=== PATIENT | male | born 1955 | race Caucasian/White ===

== ENCOUNTER 2019-05-17 15:46 | Inpatient (IN) | payer MEDICAID ==
[2019-05-17] MEDS ORDERED: Sodium Chloride 0.9% 1,000 ML IV SCH (16:30)
--- NOTE | 2019-05-17 16:44 | EDM.PDOC ---
ED HPI GENERAL MEDICAL PROBLEM - General Chief Complaint: Respiratory Problem Stated Complaint: DIZZY, SOB, HEADACHE Time Seen by Provider: 05/17/19 16:25 Source of Information: Reports: Patient, Family History Limitations: Reports: No Limitations - History of Present Illness INITIAL COMMENTS - FREE TEXT/NARRATIVE: 64-year-old otherwise healthy male is seen with persistent weakness, dizziness and lightheaded with activity, and shortness of breath. He was seen a few days ago in the clinic and evaluated but felt to be stable, he was rechecked today and there was a concern for a pulmonary emboli because of low O2 saturations at rest and was sent to the emergency room for a PE study. On arrival his oxygen was 90% on room air, but his pulse was 67 and he was not short of breath. No fevers or chills. His main complaint was just generalized malaise, weakness, worsening intolerance of activity. Onset: Gradual Duration: Week(s): Location: Reports: Generalized Associated Symptoms: Reports: Loss of Appetite, Malaise, Weakness. Denies: Confusion, Chest Pain, Cough Bilateral Shoulder Pain Score (Numeric/FACES): 3 - Related Data Allergies Allergy/AdvReac Type Severity Reaction Status Date / Time meperidine [From Demerol] Allergy Nausea and Verified 05/17/19 15:58 Vomiting Past Medical History HEENT History: Reports: None Gastrointestinal History: Reports: None Musculoskeletal History: Reports: Back Pain, Chronic Neurological History: Reports: None - Past Surgical History HEENT Surgical History: Reports: LASIK GI Surgical History: Reports: Hernia, Inguinal Neurological Surgical History: Reports: Laminectomy Musculoskeletal Surgical History: Reports: Shoulder Surgery, Other (See Below) Other Musculoskeletal Surgeries/Procedures:: right foot surgery , left rotator on april 01 [facility] in [place] Social & Family History - Family History Family Medical History: Noncontributory - Tobacco Use Smoking Status *Q: Never Smoker Second Hand Smoke Exposure: No - Caffeine Use Caffeine Use: Reports: None - Recreational Drug Use Recreational Drug Use: No ED ROS GENERAL - Review of Systems Review Of Systems: See Below Constitutional: Reports: Malaise, Decreased Appetite. Denies: Fever, Chills HEENT: Reports: No Symptoms Respiratory: Reports: Shortness of Breath. Denies: Cough Cardiovascular: Reports: Dyspnea on Exertion, Lightheadedness. Denies: Chest Pain Endocrine: Reports: Fatigue GI/Abdominal: Reports: Decreased Appetite. Denies: Abdominal Pain, Vomiting : Reports: No Symptoms Musculoskeletal: Reports: Other (Left shoulder pain since his shoulder repair, also a recent injection in his right foot. Patient is also been told he has some abnormalities of his vertebral bodies in his neck) Skin: Reports: No Symptoms Neurological: Reports: Paresthesia (Persistent paresthesias in his upper extremities, particularly the left hand) Psychiatric: Reports: No Symptoms ED EXAM, GENERAL - Physical Exam Exam: See Below Exam Limited By: No Limitations General Appearance: Alert, No Apparent Distress Eye Exam: Bilateral Eye: EOMI, Normal Inspection Head: Atraumatic Neck: Supple, Non-Tender Respiratory/Chest: Lungs Clear Cardiovascular: Regular Rate, Rhythm. No: Extra Beats GI/Abdominal: Soft, Non-Tender Extremities: Normal Inspection, Other (Some tenderness around the left shoulder from her recent surgery). No: Pedal Edema Neurological: Alert, Oriented, Other (Reflexes are mildly hyporeflexic diffusely ) Psychiatric: Normal Affect, Normal Mood Skin Exam: Warm, Dry Course - Vital Signs Last Recorded V/S: Last Vital Signs Temp 97 F 05/18/19 14:59 Pulse 71 05/18/19 14:59 Resp 16 05/18/19 14:59 BP 123/75 05/18/19 14:59 Pulse Ox 93 L 05/18/19 14:59 - Orders/Labs/Meds Labs: Laboratory Tests 05/17/19 05/17/19 05/17/19 Range/Units 16:27 16:28 16:28 D-Dimer, Quantitative 144 (0.0-400.0) ng/mL Sodium 136 L (140-148) mmol/L Potassium 4.4 (3.6-5.2) mmol/L Chloride 101 (100-108) mmol/L Carbon Dioxide 28 (21-32) mmol/L Anion Gap 11.4 (5.0-14.0) mmol/L BUN 46 H (7-18) mg/dL Creatinine 1.8 H (0.8-1.3) mg/dL Est Cr Clr Drug Dosing 48.84 mL/min Estimated GFR (MDRD) 38 L (>60) Glucose 109 H (74-106) mg/dL Calcium 13.1 H* (8.5-10.1) mg/dL Total Bilirubin 0.5 (0.2-1.0) mg/dL Direct Bilirubin 0.11 (0.0-0.2) mg/dL Indirect Bilirubin 0.39 AST 19 (15-37) U/L ALT 32 (12-78) U/L Alkaline Phosphatase 68 (46-116) U/L Total Protein 7.3 (6.4-8.2) g/dL Albumin 3.2 L (3.4-5.0) g/dL Globulin 4.1 H (2.3-3.5) g/dL Albumin/Globulin Ratio 0.8 L (1.2-2.2) Meds: Medications Discontinued Medications Generic Name Dose Route Start Last Admin Trade Name Freq PRN Reason Stop Dose Admin Acetaminophen 650 mg 05/17/19 19:31 Tylenol PO Q4H PRN Pain (Mild 1-3)/fever Enoxaparin Sodium 80 mg 05/17/19 20:00 05/18/19 09:01 Lovenox SUBCUT 80 mg Q12H WILLY Administration Sodium Chloride 1,000 mls @ 1,000 mls/hr 05/17/19 16:30 05/17/19 16:32 Normal Saline IV 1,000 mls/hr ASDIRECTED WILLY Administration Sodium Chloride 1,000 mls @ 250 mls/hr 05/17/19 19:31 05/18/19 00:19 Normal Saline IV 05/18/19 03:32 250 mls/hr ASDIRECTED WILLY Administration Sodium Chloride 1,000 mls @ 125 mls/hr 05/18/19 03:00 05/18/19 13:06 Normal Saline IV 125 mls/hr ASDIRECTED WILLY Administration Sodium Chloride 90 mls @ 0 mls/hr 05/18/19 08:00 05/18/19 09:23 Normal Saline IV 05/18/19 12:00 4 mls/hr ASDIRECTED WILLY Administration KVO Iopamidol 80 ml 05/18/19 08:00 05/18/19 09:23 Isovue-370 (76%) IV 05/18/19 12:00 80 ml . DIRECTED WILLY Administration Melatonin 9 mg 05/17/19 19:31 Melatonin PO BEDTIME PRN Insomnia Ondansetron HCl 4 mg 05/17/19 19:31 Zofran IV Q4H PRN Nausea/Vomiting Polyethylene Glycol 17 gm 05/17/19 19:31 Miralax PO DAILY PRN Constipation Sodium Chloride 10 ml 05/17/19 19:31 Saline Flush FLUSH ASDIRECTED PRN Keep Vein Open Sodium Chloride 10 ml 05/18/19 07:51 05/18/19 09:24 Saline Flush FLUSH 05/18/19 07:52 10 ml ONETIME ONE Administration - Re-Assessments/Exams Free Text/Narrative Re-Assessment/Exam: 05/17/19 17:13 Initially a BMP was drawn and 1 L of normal saline was given as a bolus to prepare for a PE study. D-dimer returned normal, but calcium was 13.1 and creatinine 1.8, GFR 36. This is a patient that tries hard to stay hydrated and drinks a lot of water. We were unable to do the PE study due to the limited renal function, I discussed his case with Dr. Larson of the hospitalist service and he kindly agreed to visit with the patient about possible admission and further evaluation. Departure - Departure Time of Disposition: 19:50 Disposition: Admitted As Inpatient 67 Clinical Impression: Hypoxemia, Hypercalcemia, Weakness - Discharge Information
--- NOTE | 2019-05-17 18:56 | PCM.HP ---
H&P History of Present Illness - General Date of Service: 05/17/19 Admit Problem/Dx: Admission Diagnosis/Problem Admission Diagnosis/Problem Hypercalcemia Source of Information: Patient, Family, Provider, RN Notes Reviewed History Limitations: Reports: No Limitations - History of Present Illness Initial Comments - Free Text/Narative: Mr. Godinez is a 64-year-old gentleman who was admitted through the emergency department with progressive symptoms of weakness, lightheadedness, headache, and anorexia. On evaluation in the emergency department was found to have hypercalcemia with a calcium level of 13.1 and acute kidney injury with a creatinine of 1.8. Over the last 3-4 months he is noted progressive symptoms of weakness and shortness of breath with activity. He has experienced a 15 pound weight loss over the last 2 months. He has become progressively more short of breath and on evaluation today was noted to have mild hypoxia with oxygen saturations on room air in the upper 80s. Approximately 6 weeks ago he underwent a left rotator cuff repair in symptoms have progressed significantly since then. He otherwise reports that he is been fairly healthy other than chronic back and neck pain. He denies any previous history of significant hypertension or underlying renal disease. - Related Data Allergies/Adverse Reactions: Allergies Allergy/AdvReac Type Severity Reaction Status Date / Time meperidine [From Demerol] Allergy Nausea and Verified 05/17/19 15:58 Vomiting Home Medications: Home Meds Ibuprofen [Advil] 200 mg PO Q4H PRN 06/12/18 [History] Past Medical History HEENT History: Reports: None Gastrointestinal History: Reports: None Musculoskeletal History: Reports: Back Pain, Chronic Neurological History: Reports: None - Past Surgical History HEENT Surgical History: Reports: LASIK GI Surgical History: Reports: Hernia, Inguinal Neurological Surgical History: Reports: Laminectomy Musculoskeletal Surgical History: Reports: Shoulder Surgery, Other (See Below) Other Musculoskeletal Surgeries/Procedures:: right foot surgery , left rotator on april 01 [facility] in [place] Social & Family History - Family History Family Medical History: Noncontributory - Tobacco Use Smoking Status *Q: Never Smoker Second Hand Smoke Exposure: No - Caffeine Use Caffeine Use: Reports: None - Recreational Drug Use Recreational Drug Use: No H&P Review of Systems - Review of Systems: Review Of Systems: See Below General: Reports: Malaise, Weakness, Fatigue, Decreased Appetite. Denies: Fever , Chills HEENT: Reports: Headaches. Denies: Ear Pain, Eye Pain, Hearing Changes, Sinus Congestion, Sore Throat Pulmonary: Reports: Shortness of Breath. Denies: Wheezing, Pleuritic Chest Pain , Cough, Sputum, Hemoptysis Cardiovascular: Reports: Dyspnea on Exertion, Lightheadedness. Denies: Chest Pain, Palpitations, Orthopnea, PND, Edema, Syncope Gastrointestinal: Reports: Decreased Appetite, Nausea. Denies: Abdominal Pain, Black Stool, Bloody Stool, Constipation, Diarrhea, Difficulty Swallowing, Distension, Vomiting Genitourinary: Reports: No Symptoms Musculoskeletal: Reports: Other (Left shoulder pain following surgery 6 weeks ago) Skin: Reports: No Symptoms Psychiatric: Reports: No Symptoms Neurological: Reports: No Symptoms Hematologic/Lymphatic: Reports: No Symptoms Immunologic: Reports: No Symptoms Exam - Exam Exam: See Below - Vital Signs Vital Signs: Last Vital Signs Temp 96.1 F 05/17/19 16:03 Pulse 66 05/17/19 17:44 Resp 16 05/17/19 17:44 BP 127/86 05/17/19 17:44 Pulse Ox 92 L 05/17/19 17:44 Weight: 181 lb 14.102 oz - Exam Quality Assessment: Supplemental Oxygen, DVT Prophylaxis General: Alert, Oriented, Cooperative, Mild Distress HEENT: Conjunctiva Clear, Hearing Intact, Normal Nasal Septum, Posterior Pharynx Clear, Pupils Equal. No: Mucosa Moist & [employer] Neck: Supple, Trachea Midline, +2 Carotid Pulse wo Bruit Lungs: Clear to Auscultation, Normal Respiratory Effort Cardiovascular: Regular Rate, Regular Rhythm, Normal S1, Normal S2. No: Systolic Murmur, Diastolic Murmur GI/Abdominal Exam: Soft, Non-Tender, No Organomegaly, No Distention Back Exam: Normal Inspection, Full Range of Motion Extremities: Non-Tender, No Pedal Edema Skin: Warm, Dry, Intact Neurological: Cranial Nerves Intact, Strength Equal Bilateral, Normal Speech, Normal Tone, Sensation Intact. No: Focal Deficit Neuro Extensive - Mental Status: Alert, Oriented x3, Normal Mood/Affect, Normal Cognition, Memory Intact - Patient Data Lab Results Last 24 hrs: Laboratory Results - last 24 hr 05/17/19 05/17/19 05/17/19 Range/Units 16:27 16:28 16:28 D-Dimer, Quantitative 144 (0.0-400.0) ng/mL Sodium 136 L (140-148) mmol/L Potassium 4.4 (3.6-5.2) mmol/L Chloride 101 (100-108) mmol/L Carbon Dioxide 28 (21-32) mmol/L Anion Gap 11.4 (5.0-14.0) mmol/L BUN 46 H (7-18) mg/dL Creatinine 1.8 H (0.8-1.3) mg/dL Est Cr Clr Drug Dosing 48.84 mL/min Estimated GFR (MDRD) 38 L (>60) Glucose 109 H (74-106) mg/dL Calcium 13.1 H* (8.5-10.1) mg/dL Total Bilirubin 0.5 (0.2-1.0) mg/dL Direct Bilirubin 0.11 (0.0-0.2) mg/dL Indirect Bilirubin 0.39 AST 19 (15-37) U/L ALT 32 (12-78) U/L Alkaline Phosphatase 68 (46-116) U/L Total Protein 7.3 (6.4-8.2) g/dL Albumin 3.2 L (3.4-5.0) g/dL Globulin 4.1 H (2.3-3.5) g/dL Albumin/Globulin Ratio 0.8 L (1.2-2.2) Result Diagrams: 05/17/19 16:28 *Q Meaningful Use (ADM) - VTE Risk Assess *Q Each Risk Factor Represents 1 Point: None Total Score 1 Point Risk Factors: 0 Each Risk Factor Represents 2 Points: Age 60 - 74 Years Total Score 2 Point Risk Factors: 2 Each Risk Factor Represents 3 Points: None Total Score 3 Point Risk Factors: 0 Each Risk Factor Represents 5 Points: None Total Score 5 Point Risk Factors: 0 Venous Thromboembolism Risk Factor Score *Q: 2 Problem List Initiated/Reviewed/Updated: Yes Orders Last 24hrs: Active Orders 24 hr Category Date Time Status Patient Status Manage Transfer [TRANSFER] Routine ADT 05/17/19 18:42 Active Sodium Chloride 0.9% [Normal Saline] 1,000 ml Med 05/17/19 16:30 Active IV ASDIRECTED Resuscitation Status Routine Resus Stat 05/17/19 18:43 Ordered Medication Orders Sodium Chloride (Normal Saline) 1,000 mls @ 1,000 mls/hr IV ASDIRECTED WILLY Last Admin: 05/17/19 16:32 Dose: 1,000 mls/hr Assessment/Plan Comment:: ASSESSMENT AND PLAN HYPOXIA-no specific etiology identified thus far on evaluation, chest x-ray obtained at the clinic was reported as clear. History of recent surgery as well as possible underlying malignancy causing hypercalcemia, places him at higher risk for deep vein thrombosis and pulmonary emboli. Unable to proceed with CT scan of the chest with contrast because of acute kidney injury and elevated creatinine. No prior history of significant pulmonary or cardiac disease. -Lovenox 1 mg/kg subcutaneous every [address] scan can be obtained -Reassess creatinine level in a.m. following hydration, if improvement plan to proceed with CT angiogram of the chest. -Consider further evaluation with echocardiogram, stress test, pulmonary function studies if CT scan is unremarkable HYPERCALCEMIA-no prior history, likely primary hyperparathyroidism versus underlying malignancy. This is associated with progressive symptoms of weakness and lightheadedness, as well as a 15 pound weight loss over the past 6 weeks. -Hydration overnight with normal saline -Recheck calcium level in a.m. following hydration -Obtain parathyroid hormone level -Consider further evaluation for underlying malignancy ACUTE KIDNEY INJURY-no prior history of significant kidney disease, likely secondary to current hypercalcemia and dehydration -Obtain prior labs for review -IV hydration as above -Recheck renal function in a.m. RECENT HEADACHES-this is a new problem for him, he has not previously experienced regular headaches. -MRI with contrast when renal function improves STATUS POST RECENT LEFT ROTATOR CUFF REPAIR-stable and progressing with rehabilitation as would be expected MAINTENANCE ISSUES -DVT prophylaxis; current therapeutic dose of Lovenox should provide adequate DVT prophylaxis -GI prophylaxis; not indicated -Scherer catheter; not indicated -Nutrition; regular diet -Nicotine dependence; not required CODE STATUS-FULL CODE ADMISSION STATUS-patient will be admitted to inpatient status, expect at least a 2 night hospital stay for evaluation and management of problems as outlined above. At the time of this admission I do not reasonably expected evaluation and management of this problem will require more than a 96 hour hospital stay. DISPOSITION-anticipate discharge to home after the hospital stay. PRIMARY CARE PROVIDER-Bethany Balderrama
[2019-05-17] MEDS ORDERED: Sodium Chloride 0.9% 10 ML Syringe FLUSH PRN (19:31)
[2019-05-17] MEDS ORDERED: Acetaminophen 325 MG Tab PO PRN (19:31)
[2019-05-17] MEDS ORDERED: Melatonin 3 MG Tab PO PRN (19:31)
[2019-05-17] MEDS ORDERED: Polyethylene Glycol 3350 Powder 17 GM Packet PO PRN (19:31)
[2019-05-17] MEDS ORDERED: Ondansetron 4 MG/2 ML SDV IV PRN (19:31)
[2019-05-17] MEDS: Sodium Chloride 0.9% 1,000 ML IV SCH (20:14)
[2019-05-17] MEDS: Enoxaparin 80 MG/0.8 ML Syringe SUBCUT SCH (20:21)
[2019-05-18] MEDS: Sodium Chloride 0.9% 1,000 ML IV SCH ×3 (00:19→13:06)
[2019-05-18] MEDS ORDERED: Iopamidol 755 Mg/ML 100 ML Bottle IV SCH (08:00)
[2019-05-18] MEDS ORDERED: Sodium Chloride 0.9% 90 ML IV SCH (08:00)
[2019-05-18] MEDS: Enoxaparin 80 MG/0.8 ML Syringe SUBCUT SCH (09:01)
[2019-05-18] MEDS: Sodium Chloride 0.9% 10 ML Syringe FLUSH ONE ×2 (09:02→09:24)
--- NOTE | 2019-05-18 09:02 | CRLCT ---
INDICATION: 64 year-old male. Unexplained hypoxia. TECHNIQUE: Contrast-enhanced chest CT performed using the pulmonary embolism protocol. 80 cc nonionic Isovue-370 administered. COMPARISON: None. No correlative studies either. FINDINGS: No acute pulmonary emboli identified. No pleural or pericardial effusions. No thoracic aortic aneurysm or dissection. Normal adrenal glands. Tiny calcified splenic granulomas. Calcified left hilar/mediastinal lymph nodes likely related to a granulomatous process. Multiple tiny airspace nodules. Peripheral subpleural ground-glass opacities. More focal fibrosis or atelectasis anteromedial right middle lobe. Diffusely increased attenuation of pulmonary parenchyma/ground-glass attenuation. The appearance likely reflects some sort of chronic inflammatory process or perhaps a superimposed infection. Please correlate clinically. This may explain the patient`s reported hypoxia. The included skeleton is negative. IMPRESSION: 1. Multiple tiny airspace nodules and ground-glass opacities/increase pulmonary parenchyma likely related to an inflammatory process potentially chronic or acute and chronic. Infection is considered less likely. 2. No pulmonary emboli. No thoracic aortic aneurysm or dissection. 3. Granulomatous changes left hemithorax and spleen. Please note that all CT scans at this facility use dose modulation, iterative reconstruction, and/or weight-based dosing when appropriate to reduce radiation dose to as low as reasonably achievable. Dictated by Elfego Sullivan MD @ May 18 2019 9:01AM Signed by Dr. Elfego Sullivan @ May 18 2019 9:01AM
--- NOTE | 2019-05-18 12:03 | CRLMR ---
INDICATION: Headaches. Hypercalcemia. Weight loss. TECHNIQUE: Multiplanar multisequence noncontrast MR images were obtained through the brain. COMPARISON: None. FINDINGS: Artifact degrades the axial FLAIR sequence. The ventricles and sulci are within normal limits for patient age. No mass effect or midline shift. No parenchymal signal abnormalities within limitations of artifact. No diffusion restriction to suggest acute infarction. No intracranial hemorrhage or pathologic extra-axial fluid collection. The major arterial flow voids of the skullbase are preserved. The globes are symmetric in size. Mild mucosal thickening in the ethmoid air cells. The mastoid air cells are clear. IMPRESSION: No acute infarction, mass effect, or intracranial hemorrhage. Dictated by Perez Castellon MD @ May 18 2019 11:55AM Signed by Dr. Perez Castellon @ May 18 2019 12:02PM
--- NOTE | 2019-05-18 15:17 | PCM.DCSUM1 ---
Discharge Summary - Hospital Course Brief History: Mr. Godinez is a 64-year-old gentleman who was admitted through the emergency department with hypoxia, hypercalcemia, and acute kidney injury. - Discharge Data Discharge Date: 05/18/19 Discharge Disposition: Home, Self-Care 01 Condition: Fair - Discharge Diagnosis/Problem(s) (1) Anorexia SNOMED Code(s): 75499641 ICD Code: R63.0 - ANOREXIA Status: Acute Current Visit: Yes (2) JONH (acute kidney injury) SNOMED Code(s): 17864809, 26462968 ICD Code: N17.9 - ACUTE KIDNEY FAILURE, UNSPECIFIED Status: Acute Current Visit: Yes (3) Hypoxemia SNOMED Code(s): 058736645 ICD Code: R09.02 - HYPOXEMIA Status: Acute Current Visit: Yes (4) Hypercalcemia SNOMED Code(s): 88192054 ICD Code: E83.52 - HYPERCALCEMIA Status: Acute Current Visit: Yes (5) Weakness SNOMED Code(s): 35471234 ICD Code: R53.1 - WEAKNESS Status: Acute Current Visit: Yes - Patient Summary/Data Hospital Course: Mr. Godinez is a 64-year-old gentleman who was admitted through the emergency department with progressive symptoms of weakness, lightheadedness, headache, and anorexia. On evaluation in the emergency department was found to have hypercalcemia with a calcium level of 13.1 and acute kidney injury with a creatinine of 1.6. Over the last 3-4 months he is noted progressive symptoms of weakness and shortness of breath with activity. He has experienced a 15 pound weight loss over the last 2 months. He has become progressively more short of breath and on evaluation today was noted to have mild hypoxia with oxygen saturations on room air in the mid 80s. Approximately 6 weeks ago he underwent a left rotator cuff repair, since then symptoms have progressed. He otherwise reports that he is been fairly healthy other than chronic back and neck pain. He denies any previous history of significant hypertension or underlying renal disease. On admission he was given IV fluids for hydration and supplemental oxygen as needed. He remained hemodynamically stable and afebrile throughout his hospital stay. By the following morning, after hydration, creatinine had improved to 1.4 with a GFR greater than 40 and his calcium level had improved to 11.1. CT scan of the chest with IV contrast showed no evidence of pulmonary emboli, but did describe nodular groundglass infiltrates in both lungs, granulomatous changes in the left lung and spleen. MRI of the head without contrast was obtained because of his symptoms of headache over the past few weeks. No significant abnormalities were seen on the MRI. He was found to have persistent hypoxia with oxygen saturations in the mid 80s after activity on room air. Because of his ongoing symptoms and findings noted on CT scan he will be transferred to [facility] in [facility] for further subspecialty evaluation and management. He has been accepted in transfer by Dr. Low. - Patient Instructions Diet: Usual Diet as Tolerated Activity: As Tolerated Other/Special Instructions: Patient will be transfered to [facility] via [facility] ambulance - Discharge Plan *PRESCRIPTION DRUG MONITORING PROGRAM REVIEWED*: Not Applicable *COPY OF PRESCRIPTION DRUG MONITORING REPORT IN PATIENT WYATT: Not Applicable Oxygen Therapy Mode: Nasal Cannula Referrals: Bethany Balderrama PA [Primary Care Provider] - - Discharge Summary/Plan Comment DC Time >30 min.: No - Patient Data Vitals - Most Recent: Last Vital Signs Temp 97 F 05/18/19 14:59 Pulse 71 05/18/19 14:59 Resp 16 05/18/19 14:59 BP 123/75 05/18/19 14:59 Pulse Ox 93 L 05/18/19 14:59 Weight - Most Recent: 187 lb I&O - Last 24 hours: Intake & Output 05/18/19 05/18/19 05/18/19 06:59 14:59 22:59 Intake Total 300 660 Output Total 400 1675 200 Balance -100 -1015 -200 Lab Results - Last 24 hrs: Laboratory Results - last 24 hr 05/17/19 05/17/19 05/17/19 Range/Units 16:27 16:28 16:28 WBC (4.5-11.0) K/uL RBC (4.30-5.90) M/uL Hgb (12.0-15.0) g/dL Hct (40.0-54.0) % MCV (80-98) fL MCH (27-31) pg MCHC (32-36) % Plt Count (150-400) K/uL Neut % (Auto) (36-66) % Lymph % (Auto) (24-44) % Ford % (Auto) (2-6) % Eos % (Auto) (2-4) % Baso % (Auto) (0-1) % D-Dimer, Quantitative 144 (0.0-400.0) ng/mL Sodium 136 L (140-148) mmol/L Potassium 4.4 (3.6-5.2) mmol/L Chloride 101 (100-108) mmol/L Carbon Dioxide 28 (21-32) mmol/L Anion Gap 11.4 (5.0-14.0) mmol/L BUN 46 H (7-18) mg/dL Creatinine 1.8 H (0.8-1.3) mg/dL Est Cr Clr Drug Dosing 48.84 mL/min Estimated GFR (MDRD) 38 L (>60) Glucose 109 H (74-106) mg/dL Calcium 13.1 H* (8.5-10.1) mg/dL POC WB Ioniz Calcium (1.12-1.32) mmol/L Total Bilirubin 0.5 (0.2-1.0) mg/dL Direct Bilirubin 0.11 (0.0-0.2) mg/dL Indirect Bilirubin 0.39 AST 19 (15-37) U/L ALT 32 (12-78) U/L Alkaline Phosphatase 68 (46-116) U/L Total Protein 7.3 (6.4-8.2) g/dL Albumin 3.2 L (3.4-5.0) g/dL Globulin 4.1 H (2.3-3.5) g/dL Albumin/Globulin Ratio 0.8 L (1.2-2.2) TSH, Ultra Sensitive (0.358-3.740) uIU/mL Urine Color Urine Appearance Urine pH (4.5-8.0) Ur Specific [place] (1.008-1.030) Urine Protein (NEGATIVE) mg/dL Urine Glucose (UA) (NEGATIVE) mg/dL Urine Ketones (NEGATIVE) mg/dL Urine Occult Blood (NEGATIVE) Urine Nitrite (NEGAITVE) Urine Bilirubin (NEGATIVE) Urine Urobilinogen (NORMAL) mg/dL Ur Leukocyte Esterase (NEGATIVE) Urine RBC (0-5) Urine WBC (0-5) Ur Epithelial Cells Amorphous Sediment Urine Bacteria Urine Mucus 06/25/19 06/25/19 06/25/19 Range/Units 04:42 04:42 04:42 WBC 7.9 (4.5-11.0) K/uL RBC 4.29 L (4.30-5.90) M/uL Hgb 12.6 (12.0-15.0) g/dL Hct 37.1 L (40.0-54.0) % MCV 87 (80-98) fL MCH 29 (27-31) pg MCHC 34 (32-36) % Plt Count 200 (150-400) K/uL Neut % (Auto) 66 (36-66) % Lymph % (Auto) 21 L (24-44) % Ford % (Auto) 11 H (2-6) % Eos % (Auto) 2 (2-4) % Baso % (Auto) 0 (0-1) % D-Dimer, Quantitative (0.0-400.0) ng/mL Sodium (140-148) mmol/L Potassium (3.6-5.2) mmol/L Chloride (100-108) mmol/L Carbon Dioxide (21-32) mmol/L Anion Gap (5.0-14.0) mmol/L BUN (7-18) mg/dL Creatinine (0.8-1.3) mg/dL Est Cr Clr Drug Dosing mL/min Estimated GFR (MDRD) (>60) Glucose (74-106) mg/dL Calcium (8.5-10.1) mg/dL POC WB Ioniz Calcium 1.59 H* (1.12-1.32) mmol/L Total Bilirubin (0.2-1.0) mg/dL Direct Bilirubin (0.0-0.2) mg/dL Indirect Bilirubin AST (15-37) U/L ALT (12-78) U/L Alkaline Phosphatase (46-116) U/L Total Protein (6.4-8.2) g/dL Albumin (3.4-5.0) g/dL Globulin (2.3-3.5) g/dL Albumin/Globulin Ratio (1.2-2.2) TSH, Ultra Sensitive 1.031 (0.358-3.740) uIU/mL Urine Color Urine Appearance Urine pH (4.5-8.0) Ur Specific [place] (1.008-1.030) Urine Protein (NEGATIVE) mg/dL Urine Glucose (UA) (NEGATIVE) mg/dL Urine Ketones (NEGATIVE) mg/dL Urine Occult Blood (NEGATIVE) Urine Nitrite (NEGAITVE) Urine Bilirubin (NEGATIVE) Urine Urobilinogen (NORMAL) mg/dL Ur Leukocyte Esterase (NEGATIVE) Urine RBC (0-5) Urine WBC (0-5) Ur Epithelial Cells Amorphous Sediment Urine Bacteria Urine Mucus 05/18/19 05/18/19 Range/Units 04:42 10:13 WBC (4.5-11.0) K/uL RBC (4.30-5.90) M/uL Hgb (12.0-15.0) g/dL Hct (40.0-54.0) % MCV (80-98) fL MCH (27-31) pg MCHC (32-36) % Plt Count (150-400) K/uL Neut % (Auto) (36-66) % Lymph % (Auto) (24-44) % Ford % (Auto) (2-6) % Eos % (Auto) (2-4) % Baso % (Auto) (0-1) % D-Dimer, Quantitative (0.0-400.0) ng/mL Sodium 140 (140-148) mmol/L Potassium 4.3 (3.6-5.2) mmol/L Chloride 106 (100-108) mmol/L Carbon Dioxide 25 (21-32) mmol/L Anion Gap 8.8 (5.0-14.0) mmol/L BUN 37 H (7-18) mg/dL Creatinine 1.6 H (0.8-1.3) mg/dL Est Cr Clr Drug Dosing 54.94 mL/min Estimated GFR (MDRD) 44 L (>60) Glucose 102 (74-106) mg/dL Calcium 11.2 H (8.5-10.1) mg/dL POC WB Ioniz Calcium (1.12-1.32) mmol/L Total Bilirubin (0.2-1.0) mg/dL Direct Bilirubin (0.0-0.2) mg/dL Indirect Bilirubin AST (15-37) U/L ALT (12-78) U/L Alkaline Phosphatase (46-116) U/L Total Protein (6.4-8.2) g/dL Albumin (3.4-5.0) g/dL Globulin (2.3-3.5) g/dL Albumin/Globulin Ratio (1.2-2.2) TSH, Ultra Sensitive (0.358-3.740) uIU/mL Urine Color Yellow Urine Appearance Clear Urine pH 6.0 (4.5-8.0) Ur Specific [place] 1.015 (1.008-1.030) Urine Protein Negative (NEGATIVE) mg/dL Urine Glucose (UA) Normal (NEGATIVE) mg/dL Urine Ketones Negative (NEGATIVE) mg/dL Urine Occult Blood Negative (NEGATIVE) Urine Nitrite Negative (NEGAITVE) Urine Bilirubin Negative (NEGATIVE) Urine Urobilinogen Normal (NORMAL) mg/dL Ur Leukocyte Esterase Negative (NEGATIVE) Urine RBC Not seen (0-5) Urine WBC Not seen (0-5) Ur Epithelial Cells Not seen Amorphous Sediment Rare Urine Bacteria Not seen Urine Mucus Not seen Med Orders - Current: Current Medications Acetaminophen (Tylenol) 650 mg PO Q4H PRN PRN Reason: Pain (Mild 1-3)/fever Sodium Chloride (Normal Saline) 1,000 mls @ 125 mls[facility] Admin: 05/18/19 13:06 Dose: 125 mls/hr Melatonin (Melatonin) 9 mg PO BEDTIME PRN PRN Reason: Insomnia Ondansetron HCl (Zofran) 4 mg IV Q4H PRN PRN Reason: Nausea/Vomiting Polyethylene Glycol (Miralax) 17 gm PO DAILY PRN PRN Reason: Constipation Sodium Chloride (Saline Flush) 10 ml FLUSH ASDIRECTED PRN PRN Reason: Keep Vein Open Discontinued Medications Enoxaparin Sodium (Lovenox) 80 mg SUBCUT Q12H [facility] Last Admin: 05/18/19 09:01 Dose: 80 mg Sodium Chloride (Normal Saline) 1,000 mls @ 1,000 mls/hr IV [facility] Last Admin: 05/17/19 16:32 Dose: 1,000 mls/hr Sodium Chloride (Normal Saline) 1,000 mls @ 250 mls/hr IV [facility] Stop: 05/18/19 03:32 Last Admin: 05/18/19 00:19 Dose: 250 mls/hr Sodium Chloride (Normal Saline) 90 mls @ 0 mls/hr IV [facility] Stop: 05/18/19 12:00 Last Admin: 05/18/19 09:23 Dose: 4 mls/hr Iopamidol (Isovue-370 (76%)) 80 ml IV . DIRECTED WILLY Stop: 05/18/19 12:00 Last Admin: 05/18/19 09:23 Dose: 80 ml Sodium Chloride (Saline Flush) 10 ml FLUSH ONETIME ONE Stop: 05/18/19 07:52 Last Admin: 05/18/19 09:24 Dose: 10 ml - Exam Quality Assessment: Reports: DVT Prophylaxis General: Reports: Alert, Oriented, Cooperative, Mild Distress Lungs: Reports: Clear to Auscultation, Normal Respiratory Effort Cardiovascular: Reports: Regular Rate, Regular Rhythm, No Murmurs GI/Abdominal Exam: Soft, Non-Tender, No Organomegaly, No Distention Back Exam: Reports: Normal Inspection, Full Range of Motion *Q Meaningful Use (DIS) - VTE *Q VTE Pharmacological Contraindications *Q: High INR Value
== END 2019-05-18 16:05 | DRG 206 ==
LOC: JP.ED 15:46 → JP.MS 18:42
PROVIDERS: ADMIT Hospitalist; ATTEND Hospitalist
DX: R09.02 Hypoxemia (principal); N17.9 Acute kidney failure, unspecified; E83.52 Hypercalcemia; R63.0 Anorexia; R53.1 Weakness; R63.4 Abnormal weight loss; R51 Headache; Z98.890 Other specified postprocedural states; M54.9 Dorsalgia, unspecified; G89.29 Other chronic pain; M54.2 Cervicalgia; R91.8 Other nonspecific abnormal finding of lung field; Z88.5 Allergy status to narcotic agent
CPT/HCPCS: 36415; 70551; 71275; 80048; 80076; 81001; 82330; 83970; 84443; 85025; 85379; 94762; 96360; 99284-25; J1650; J7030; Q9967

== ENCOUNTER 2020-03-01 10:53 | Emergency (ER) | payer MEDICAID ==
[2020-03-01] MEDS ORDERED: Sodium Chloride 0.9% 1,000 ML IV SCH ×2 (11:45→13:00)
--- NOTE | 2020-03-01 11:48 | EDM.PDOC ---
ED HPI GENERAL MEDICAL PROBLEM - General Chief Complaint: Abdominal Pain Stated Complaint: RT SIDE ABD PAIN Time Seen by Provider: 03/01/20 11:45 Source of Information: Reports: Patient History Limitations: Reports: No Limitations - History of Present Illness INITIAL COMMENTS - FREE TEXT/NARRATIVE: pt arrived with history of pain in the rt lower abdoman which started about 1 month ago. He states recently it has been a little worse. He has had normal bms. He had a urine done at [facility] which showed alot of rbcs. His pain is in the rt lower abdoman but it extends to the rt flank, Onset: Gradual Duration: Day(s): Location: Reports: Abdomen Associated Symptoms: Reports: Other (pain with deep breathing in the rt flank and rt lower abdoman. ) Right Lower Abdomen Pain Score (Numeric/FACES): 4 - Related Data Allergies Allergy/AdvReac Type Severity Reaction Status Date / Time meperidine [From Demerol] Allergy Nausea and Verified 03/01/20 11:09 Vomiting Home Meds: Home Meds Sildenafil Citrate 1 tab PO ASDIRECTED PRN 03/01/20 [History] atorvaSTATin [Lipitor] 10 mg PO BEDTIME 03/01/20 [History] Past Medical History HEENT History: Reports: None Cardiovascular History: Reports: High Cholesterol Respiratory History: Reports: Other (See Below) Other Respiratory History: NTM Gastrointestinal History: Reports: None Genitourinary History: Reports: Other (See Below) Other Genitourinary History: Hematuria Musculoskeletal History: Reports: Back Pain, Chronic Neurological History: Reports: None - Past Surgical History HEENT Surgical History: Reports: LASIK GI Surgical History: Reports: Colonoscopy, Hernia, Inguinal Neurological Surgical History: Reports: Laminectomy Musculoskeletal Surgical History: Reports: Shoulder Surgery, Other (See Below) Other Musculoskeletal Surgeries/Procedures:: right foot surgery , left rotator on april 01 [facility] [place] back surgery x4 Social & Family History - Family History Family Medical History: Noncontributory - Tobacco Use Smoking Status *Q: Never Smoker Second Hand Smoke Exposure: No - Caffeine Use Caffeine Use: Reports: Soda - Alcohol Use Days Per Week of Alcohol Use: 0 - Recreational Drug Use Recreational Drug Use: No ED ROS GENERAL - Review of Systems Review Of Systems: See Below Constitutional: Reports: No Symptoms HEENT: Reports: No Symptoms Respiratory: Reports: No Symptoms Cardiovascular: Reports: No Symptoms Endocrine: Reports: No Symptoms GI/Abdominal: Reports: Abdominal Pain, Other (pain in rt lower abdoman and rt flank area. ) : Reports: Other ( blood in the urine. ) Musculoskeletal: Reports: No Symptoms Skin: Reports: No Symptoms ED EXAM, GI/ABD - Physical Exam Exam: See Below Text/Narrative:: pt arrived with pain in the rt lower abdoman and rt flank. This has been off and on for 1 monthj. He has not had a fever. His bms are normal. Exam Limited By: No Limitations General Appearance: Alert, Anxious, Moderate Distress Ears: Normal TMs Nose: Normal Inspection Throat/Mouth: Normal Inspection Head: Atraumatic Neck: Normal Inspection Respiratory/Chest: No Respiratory Distress GI/Abdominal Exam: Tender, Other (pt is tender in the rt lower abdoman and rt flank area. He is guarded in the rt lower abdoman. ) Rectal (Males) Exam: Deferred Back Exam: CVA Tenderness (L) Extremities: Normal Inspection Neurological: Alert, Oriented, Normal Cognition Psychiatric: Normal Mood Course - Vital Signs Last Recorded V/S: Last Vital Signs Temp 36.6 C 03/01/20 11:21 Pulse 71 03/01/20 11:21 Resp 16 03/01/20 11:21 BP 115/72 03/01/20 11:21 Pulse Ox 98 03/01/20 11:21 - Orders/Labs/Meds Orders: Active Orders 24 hr Category Date Time Status Iopamidol [Isovue-300 (61%)] Med 03/01/20 12:15 Active 130 ml IV . DIRECTED Sodium Chloride 0.9% [Normal Saline] 1,000 ml Med 03/01/20 11:45 Active IV ASDIRECTED Sodium Chloride 0.9% [Normal Saline] 1,000 ml Med 03/01/20 13:00 Active IV ASDIRECTED Sodium Chloride 0.9% [Saline Flush] Med 03/01/20 12:15 Active 10 ml FLUSH ONETIME PRN Medication Orders Sodium Chloride (Normal Saline) 1,000 mls @ 999 mls/hr IV ASDIRECTED WILLY Last Admin: 03/01/20 12:04 Dose: 999 mls/hr Sodium Chloride (Normal Saline) 1,000 mls @ 999 mls/hr IV ASDIRECTED WILLY Last Admin: 03/01/20 13:31 Dose: 999 mls/hr Iopamidol (Isovue-300 (61%)) 130 ml IV . DIRECTED WILLY Last Admin: 03/01/20 12:27 Dose: 100 ml Sodium Chloride (Saline Flush) 10 ml FLUSH ONETIME PRN PRN Reason: PER RADIOLOGY PROTOCOL Last Admin: 03/01/20 12:27 Dose: 10 ml Labs: Laboratory Tests 03/01/20 Range/Units 11:11 Sodium 137 L (140-148) mmol/L Potassium 4.0 (3.6-5.2) mmol/L Chloride 100 (100-108) mmol/L Carbon Dioxide 28 (21-32) mmol/L Anion Gap 13.0 (5.0-14.0) mmol/L BUN 36 H (7-18) mg/dL Creatinine 1.9 H (0.8-1.3) mg/dL Est Cr Clr Drug Dosing 45.67 mL/min Estimated GFR (MDRD) 36 L (>60) Glucose 185 H (74-106) mg/dL Calcium 8.9 D (8.5-10.1) mg/dL Total Bilirubin 0.8 D (0.2-1.0) mg/dL AST 13 L (15-37) U/L ALT 33 (12-78) U/L Alkaline Phosphatase 84 (46-116) U/L C-Reactive Protein 9.55 H (0.0-0.3) mg/dL Total Protein 7.3 (6.4-8.2) g/dL Albumin 3.4 (3.4-5.0) g/dL Globulin 3.9 H (2.3-3.5) g/dL Albumin/Globulin Ratio 0.9 L (1.2-2.2) Meds: Medications Generic Name Dose Route Start Last Admin Trade Name Freq PRN Reason Stop Dose Admin Sodium Chloride 1,000 mls @ 999 mls/hr 03/01/20 11:45 03/01/20 12:04 Normal Saline IV 999 mls/hr ASDIRECTED WILLY Administration Sodium Chloride 1,000 mls @ 999 mls/hr 03/01/20 13:00 03/01/20 13:31 Normal Saline IV 999 mls/hr ASDIRECTED WILLY Administration Iopamidol 130 ml 03/01/20 12:15 03/01/20 12:27 Isovue-300 (61%) IV 100 ml . DIRECTED WILLY Administration Sodium Chloride 10 ml 03/01/20 12:15 03/01/20 12:27 Saline Flush FLUSH 10 ml ONETIME PRN Administration PER RADIOLOGY PROTOCOL Discontinued Medications Generic Name Dose Route Start Last Admin Trade Name Pantera PRN Reason Stop Dose Admin Sodium Chloride 80 mls @ 3 mls/sec 03/01/20 12:15 03/01/20 12:27 Normal Saline IV 03/01/20 12:16 3 mls/sec ONETIME ONE Administration - Re-Assessments/Exams Free Text/Narrative Re-Assessment/Exam: 03/01/20 13:50 pt arrived with pain in rt lower abdoman. His wbc was mildly elevated. His gfr is low. He has rbcs in the urine. . His crp is greater than 9. 03/01/20 13:52 acat scan of the abdoman was obtained which shows a large fluid collection in the rt renal pelvis. possible upj obstruction, no stone was seen Departure - Departure Time of Disposition: 13:54 Disposition: Home, Self-Care 01 Condition: Fair Clinical Impression: Mass of right kidney, Hematuria - Discharge Information Referrals: Bethany Balderrama PA [Primary Care Provider] - Forms: ED Department Discharge Care Plan Goals: to [facility]rology [facility], films will be sent to [facility]. Pt will have a disc with him. levoquin 500mg daily. Sepsis Event Note - Evaluation Sepsis Screening Result: No Definite Risk - Focused Exam Vital Signs: Vital Signs Temp Pulse Resp BP Pulse Ox 03/01/20 11:21 36.6 C 71 16 115/72 98 03/01/20 11:05 36.6 C 71 16 115/72 98 Date Exam was Performed: 03/01/20 Time Exam was Performed: 14:18 - My Orders Last 24 Hours: My Active Orders 03/01/20 11:45 Sodium Chloride 0.9% [Normal Saline] 1,000 ml IV ASDIRECTED 03/01/20 12:15 Iopamidol [Isovue-300 (61%)] 130 ml IV . DIRECTED Sodium Chloride 0.9% [Saline Flush] 10 ml FLUSH ONETIME PRN 03/01/20 13:00 Sodium Chloride 0.9% [Normal Saline] 1,000 ml IV ASDIRECTED - Assessment/Plan Last 24 Hours: My Active Orders 03/01/20 11:45 Sodium Chloride 0.9% [Normal Saline] 1,000 ml IV ASDIRECTED 03/01/20 12:15 Iopamidol [Isovue-300 (61%)] 130 ml IV . DIRECTED Sodium Chloride 0.9% [Saline Flush] 10 ml FLUSH ONETIME PRN 03/01/20 13:00 Sodium Chloride 0.9% [Normal Saline] 1,000 ml IV ASDIRECTED
[2020-03-01] MEDS ORDERED: Sodium Chloride 0.9% 80 ML IV ONE (12:15)
[2020-03-01] MEDS ORDERED: Sodium Chloride 0.9% 10 ML Syringe FLUSH PRN (12:15)
[2020-03-01] MEDS ORDERED: Iopamidol 612 MG/ML 150 ML Bottle IV SCH (12:15)
--- NOTE | 2020-03-01 13:15 | CT ---
Abdomen Pelvis w wo Cont CT UROGRAM CLINICAL HISTORY: Hematuria and right lower quadrant pain COMPARISON: None TECHNIQUE: Multiple contiguous axial images were obtained from the level of the lung bases down to the pubic symphysis without and with the IV infusion of iodinated contrast oral contrast was not administered. Coronal and sagital reconstructions of the renal collecting systems, ureters, and bladder were also obtained .Auto dosage reduction and iterative reconstruction techniques employed. FINDINGS:The visualized lung bases show some minimal patchy density in the dependent portions of both lower lobes. This is likely some subsegmental atelectasis. Liver shows no mass or biliary dilatation. Gallbladder has a normal contour. There are a few granulomata in the spleen. The pancreas shows no mass or inflammatory change. The adrenal glands appear normal bilaterally. The right kidney is severely hydronephrotic. There is a 11.4 x 9.4 x 11.5 cm well-circumscribed fluid-filled structure contiguous to the renal pelvis. This may represent a very dilated extrarenal pelvis. The ureter is not opacified. No definite urinary stone is seen though there are multiple small calcifications in the pelvis. These appear to be vascular. There is perinephric stranding on the right. There is some fluid perinephric space posteriorly. There is encroachment on the inferior vena cava the bladder has a normal contour. The left kidney shows no mass or hydronephrosis. There are some punctate calcifications in the region of the renal per minutes. The pericalyceal blush the suggests some tubular ectasia. IMPRESSION: Severe right-sided hydronephrosis. Large fluid collection contiguous to the renal pelvis. The this most likely represents a distended extrarenal pelvis possibly from UPJ obstruction. Delayed images may be helpful to see if there is continuity between the pelvicalyceal structures in this large fluid collection. No retroperitoneal mass or urinary stone is identified.
== END 2020-03-01 14:31 | disposition home or self-care (01) ==
LOC: JP.ED 10:53
DX: N28.89 Other specified disorders of kidney and ureter (principal); R31.9 Hematuria, unspecified; E78.00 Pure hypercholesterolemia, unspecified; Z88.5 Allergy status to narcotic agent; Z79.899 Other long term (current) drug therapy
CPT/HCPCS: 36415; 74178; 80053; 86140; 96360; 96361; 99284; J7030; J7050; Q9967

== ENCOUNTER 2021-08-20 07:48 | Day surgery (SDC) | payer MEDICAID, MEDICARE ==
[2021-08-20] MEDS ORDERED: Propofol 200 MG/20 ML SDV ONE ×2 (08:00→09:25)
[2021-08-20] MEDS ORDERED: fentaNYL 100 MCG/2 ML SDV ONE (08:00)
[2021-08-20] MEDS ORDERED: Midazolam 1 MG/ML 2 ML SDV ONE (08:00)
[2021-08-20] MEDS ORDERED: ceFAZolin 2 GM in Premix Bag 1 BAG IV ONE (08:30)
[2021-08-20] MEDS ORDERED: Sodium Chloride 0.9% 1,000 ML IV SCH (09:00)
--- NOTE | 2021-08-20 14:33 | OR ---
DATE OF PROCEDURE: 08/20/2021 SURGEON: Candido Daniel MD PROCEDURE: Colonoscopy with resection of transverse colon polyp. COMPLICATIONS: None. MANAGER TALENT MANAGEMENT: None. ANESTHESIA: MAC. PREOPERATIVE DIAGNOSIS: Screening colonoscopy. POSTOPERATIVE DIAGNOSIS: Screening colonoscopy. RISKS: Risks, benefits, alternatives, and limitations including, but not limited to infection, bleeding, perforation, false positives and false negatives were explained to the patient and he wished to proceed. PROCEDURE IN DETAIL: The patient was placed in left lateral decubitus position. Digital rectal exam was performed without abnormality. Scope was introduced and advanced atraumatically to the ileocecal valve. A photo was taken of the appendiceal orifice. Scope was brought back to the ascending, transverse, descending colon, and retroflexed. No evidence of old or new blood. No masses. The aforementioned polyp was identified and completely removed. Greater than 8 minutes was spent removing the scope. The prep was acceptable with 90% of the luminal surface could be seen. The patient tolerated the procedure well. Candido Daniel MD /[id number]
== END 2021-08-20 10:45 | disposition home or self-care (01) ==
LOC: JP.SDS 07:48
PROVIDERS: ATTEND Surgery
DX: Z12.11 Encounter for screening for malignant neoplasm of colon (principal); D12.3 Benign neoplasm of transverse colon
CPT/HCPCS: 45380; J0690; J2250; J2704; J3010; J7030

== ENCOUNTER 2024-09-27 06:46 | Day surgery (SDC) | payer MEDICARE, BC ==
[2024-09-27] MEDS ORDERED: Propofol 200 MG/20 ML SDV ONE ×2 (07:10→08:54)
[2024-09-27] MEDS ORDERED: Midazolam 1 MG/ML 2 ML SDV ONE (07:10)
[2024-09-27] MEDS ORDERED: fentaNYL 50 MCG/ML SDV ONE (07:10)
[2024-09-27] MEDS: Lactated Ringers 1,000 ML IV SCH (07:33)
== END 2024-09-27 11:09 | disposition home or self-care (01) ==
LOC: JP.SDS 06:46
PROVIDERS: ATTEND Surgery
DX: Z12.11 Encounter for screening for malignant neoplasm of colon (principal); D12.2 Benign neoplasm of ascending colon; K57.30 Diverticulosis of large intestine without perforation or abscess without bleeding; E78.5 Hyperlipidemia, unspecified; Z88.8 Allergy status to other drugs, medicaments and biological substances
CPT/HCPCS: 00811; 45380; 45385; 88305; J2250; J2704; J3010; J7120